=== PATIENT | female | born 1970 | race Caucasian/White ===

== ENCOUNTER → 2023-11-08 | Day surgery (SDC) | payer OTHER ==
--- NOTE | 2023-11-14 10:30 | MM ---
Reason for Exam: Post Procedure Mammogram. Risk Values: Janel 5 year model risk: 0.7%. NCI Lifetime model risk: 5.7%. Tissue Density: Right: The breasts are heterogeneously dense, which may obscure small masses. Pathology Description: Location: 7 o'clock. The ultrasound guided cyst aspiration procedure was explained to the patient. The risks, benefits, alternatives were discussed. Discussion of implant rupture was discussed. An informed consent was then obtained. A time out was performed. The patient was placed in supine positioning for imaging and for the procedure. The overlying skin was prepped with betadine and sterilely draped in usual sterile fashion. 6 ml 1% lidocaine was used as anesthetic into the skin and deeper breast tissue up to area of concern in the right breast 7:00 o'clock breast, 8 cm from nipple. Under ultrasound guidance, an 18 spinal needle was advanced into the cyst and aspiration yielded 3 mL of dark red to brown fluid. The fluid was labeled and sent for laboratory analysis. A wing clip was left in lesion. Good hemostasis was obtained with direct pressure. Postprocedure mammogram: The patient was transferred to mammography for physician ordered post procedure mammogram for clip placement verification. The clip is in the expected region of the biopsy. The patient tolerated the procedure well without any immediate complication. The patient was discharged to home in stable condition. Impression: Successful ultrasound guided cyst aspiration right breast. Cytology pending. Pathology Results: Result: Benign, Apocrine metaplasia. Pathology and radiology were reviewed. Findings are concordant. RIGHT BREAST, 7:00, ULTRASOUND GUIDED ASPIRATION: Hypocellular fluid with rare peripheral blood, inflammatory cells and scattered degenerated debris. Rare apocrine metaplasia present. See note. Notes If there are clinical findings suspicious for malignancy, a core needle tissue biopsy can be performed. Correlation with imaging studies is suggested, as clinically indicated. Overall Assessment: Benign Assessment: MG diagnostic mammo RT wo CAD - Right: Probably benign, BI-RAD 3. Management: Diagnostic Breast Ultrasound of the right breast in 6 months. Electronically signed and approved by: Jorden Lackey D.O. Radiologis
== END | disposition home or self-care (01) ==
LOC: RADUSWWP 10:17
PROVIDERS: ATTEND Family Medicine
DX: N60.81 Other benign mammary dysplasias of right breast (principal)
CPT/HCPCS: 88108; 88305; 77065; 76942; 19000; A4648

== ENCOUNTER → 2024-05-11 | Outpatient (CLI) | payer OTHER ==
--- NOTE | 2024-05-11 15:20 | MM ---
Reason for Exam: Follow-up at short interval from prior study. Patient History: Menarche at age 12. Patient has no children. Perimenopausal. 11/08/2023, Benign US breast aspiration single RT on the right side. Bilateral Implants. Last menstrual period: 05/11/2024 Risk Values: Janel 5 year model risk: 1.3%. NCI Lifetime model risk: 9.3%. Prior Study Comparison: 11/08/2023 Right MG diagnostic mammo RT wo CAD, [facility]. Tissue Density: Right: The breasts are heterogeneously dense, which may obscure small masses. Findings: Analyzed By CAD. Right-sided breast implant is intact. No evidence for mass or distortion. No suspicious calcifications. Overall Assessment: Benign, BI-RAD 2 Management: Screening Mammogram of both breasts in 6 months. . Results were given to the patient verbally at the time of exam. Patient should continue monthly self-breast exams. A clinical breast exam by your physician is recommended on an annual basis. This exam should not preclude additional follow-up of suspicious palpable abnormalities. Note on Janel scores and lifetime risk: 1. A Janel score greater than 3% is considered moderate risk. If this is the case, consider specialist referral to assess eligibility for a risk reducing agent. 2. If overall lifetime risk for the development of breast cancer is 20% or higher, the patient may qualify for future screening with alternating mammogram and breast MRI. [facility], , 05/11/2024 3:17 PM. Electronically signed and approved by: Jono Prescott M.D. Radiologis
== END | disposition home or self-care (01) ==
LOC: RADMAMWWP 14:52
PROVIDERS: ATTEND Family Medicine
DX: R92.8 Other abnormal and inconclusive findings on diagnostic imaging of breast
CPT/HCPCS: 77061; 77065

== ENCOUNTER → 2025-01-18 | Outpatient (CLI) | payer OTHER ==
--- NOTE | 2025-01-18 11:13 | MM ---
Reason for Exam: Hx of breast augmentation, asymptomatic. Patient History: Menarche at age 12. Patient has no children. Perimenopausal. 11/08/2023, Benign US breast aspiration single RT on the right side. Bilateral Implants. Risk Values: Janel 5 year model risk: 1.3%. NCI Lifetime model risk: 9.1%. Prior Study Comparison: Bilateral MG screening mammo implant/CAD, Unknown. 11/08/2023 Right MG diagnostic mammo RT wo CAD, [facility]. 05/11/2024 Right MG 3D diag mammo imp w/cad RT, [facility]. Tissue Density: The breasts are heterogeneously dense, which may obscure small masses. Findings: Analyzed By CAD. Bilateral breast implants are redemonstrated. Occasional tiny benign-appearing round calcification bilaterally redemonstrated. There is no suspicious group of microcalcifications or new suspicious mass in either breast. Overall Assessment: Incomplete: need additional imaging evaluation, BI-RAD 0 Management: Diagnostic Breast Ultrasound of the right breast. Targeted ultrasound right breast due to new palpable lump. Patient should continue monthly self-breast exams. A clinical breast exam by your physician is recommended on an annual basis. This exam should not preclude additional follow-up of suspicious palpable abnormalities. Note on Janel scores and lifetime risk: 1. A Janel score greater than 3% is considered moderate risk. If this is the case, consider specialist referral to assess eligibility for a risk reducing agent. 2. If overall lifetime risk for the development of breast cancer is 20% or higher, the patient may qualify for future screening with alternating mammogram and breast MRI. [facility], , 01/18/2025 11:10 AM. Electronically signed and approved by: Bharat Johns M.D.
== END | disposition home or self-care (01) ==
LOC: RADMAMWWP 09:29
PROVIDERS: ATTEND Family Medicine
DX: Z12.31 Encounter for screening mammogram for malignant neoplasm of breast (principal); R92.333 Mammographic heterogeneous density, bilateral breasts; Z98.82 Breast implant status
CPT/HCPCS: 77063; 77067

== ENCOUNTER → 2025-02-10 | Outpatient (CLI) | payer OTHER ==
--- NOTE | 2025-02-10 16:04 | USB ---
Reason for Exam: Clinical finding. Patient History: Menarche at age 12. Patient has no children. Perimenopausal. 11/08/2023, Benign US breast aspiration single RT on the right side. Bilateral Implants. Risk Values: Janel 5 year model risk: 1.3%. NCI Lifetime model risk: 9.1%. Technique: Method: Targeted. Prior Study Comparison: 11/08/2023 Right MG diagnostic mammo RT wo CAD, [facility]. 05/11/2024 Right MG 3D diag mammo imp w/cad RT, [facility]. 01/18/2025 Bilateral MG 3D screen mammo imp/cad., [facility]. Findings: The lower outer quadrant of the right breast, the axilla of the right breast and the retroareolar of the right breast were scanned. Targeted ultrasound along the patient reported palpable site lower quadrant right breast with scanning performed 6:00 to 10:00 including scanning of the subareolar region and axilla. Scattered normal duct ectasia is present throughout. At the 7:00 position, 4 cm from the nipple, there is a circumscribed oval hypoechoic lesion measuring 8 x 4 x 7 mm. This can be reassessed in 6 months. At the 10:00 position, 3 cm from the nipple, there is a bilobed complex cyst versus cyst with debris measuring 9 x 8 x 6 mm. Six-month follow-up recommended to exclude any abnormal intracystic soft tissue. Scattered dense tissue is present throughout. No other solid or cystic lesion or axillary adenopathy. Underlying breast implant seen on some of the images. Overall Assessment: Probably benign, BI-RAD 3 Management: Diagnostic Breast Ultrasound of the right breast in 6 months. If any suspicious, enlarging lump, the patient can be rescanned sooner. A clinical breast exam by your physician is recommended on an annual basis and results should be correlated with mammographic findings. This exam should not preclude additional follow-up of suspicious palpable abnormalities. Results were given to the patient verbally at the time of exam. [facility], , 02/10/2025 4:01 PM. Electronically signed and approved by: Raffaele Otero M.D. Radiologist
== END | disposition home or self-care (01) ==
LOC: RADUSWWP 15:30
PROVIDERS: ATTEND Family Medicine
DX: R92.8 Other abnormal and inconclusive findings on diagnostic imaging of breast (principal); Z98.82 Breast implant status